=== PATIENT | female | born 1990 | race Two or more races ===

== ENCOUNTER 2017-01-02 01:52 | Emergency (ER) | payer SELFPAY ==
[~2017-01-02] VITALS: Ht 154.9 cm; Wt 81.6 kg
[~2017-01-02 01:52] MED LIST: IBUPROFEN600 MG ORAL; UNKNOWN ANTIBIOTIC
[2017-01-02] MEDS ORDERED: NKM (01:59)
[2017-01-02 02:05] VITALS: BP 113/80
[2017-01-02] MEDS ORDERED: PREDNISONE20 MG ORAL (02:18)
[2017-01-02] MEDS ORDERED: BENADRYL25 MG ORAL (02:18)
--- NOTE | 2017-01-02 02:19 | Emergency Room Report ---
History of Present Illness General Chief Complaint: Allergic Reaction Source: Patient Present Illness HPI Is a 26-year-old female with no symptom past medical history she present with allergic reaction. She ate pineapple around 10 PM. She woke up around 1:30 2: 00 with itchiness and rash. No tongue edema. No short of breath and wheezing. She had pineapple before but never had this reaction. No other new medication or any thing she can think of that can cause a reaction. Allergies: Coded Allergies: No Known Allergies (Unverified , 06/15/13) Patient History Past Medical History: see triage record, old chart reviewed Past Surgical History: none Pertinent Family History: none Social History: Denies: smoking Last Menstrual Period: dec Now: No Immunizations: other Reviewed Nursing Documentation: PMH: Agreed, PSxH: Agreed Nursing Documentation-PMH Past Medical History: No Stated History Review of Systems Eye: Denies: eye pain, blurred vision ENT: Denies: ear pain, nose congestion, throat swelling Respiratory: Denies: cough, shortness of breath Cardiovascular: Denies: chest pain, palpitations Gastrointestinal: Denies: abdominal pain, diarrhea, nausea, vomiting Musculoskeletal: Denies: back pain, joint pain Skin: Reports: rash Neurological: Denies: headache, numbness Endocrine: Denies: increased thirst, increased urine Hematologic/Lymphatic: Denies: easy bruising All Other Systems: negative except mentioned in HPI Physical Exam Vital Signs Date Time Temp Pulse Resp B/P (MAP) Pulse Ox O2 Delivery O2 Flow Rate FiO2 01/02/17 01:56 98.1 93 16 113/80 96 Room Air vitals normal Sp02 EP Interpretation: reviewed, normal General Appearance: well appearing, no apparent distress, alert Head: normocephalic, atraumatic Eyes: bilateral eye PERRL, bilateral eye EOMI ENT: hearing grossly normal, normal pharynx Neck: full range of motion, supple, no meningismus Respiratory: chest non-tender, lungs clear, normal breath sounds Cardiovascular #1: regular rate, rhythm, no murmur Gastrointestinal: normal bowel sounds, non tender, no mass, no organomegaly, no bruit, non-distended Musculoskeletal: back normal, gait/station normal, normal range of motion Neurologic: alert, oriented x3 Psychiatric: mood/affect normal Skin: warm/dry, rash - Urticaria and welts to her extremities and torso Medical Decision Making Diagnostic Impression: Primary Impression: Allergic reaction Qualified Codes: T78.40XA - Allergy, unspecified, initial encounter ER Course Patient with allergic reaction. No evidence of anaphylaxis. We'll discharge home Last Vital Signs Date Time Temp Pulse Resp B/P (MAP) Pulse Ox O2 Delivery O2 Flow Rate FiO2 01/02/17 01:56 98.1 93 16 113/80 96 Room Air Status: improved Disposition: HOME, SELF-CARE Condition: Stable Scripts Prednisone* (PREDNISONE*) 20 Mg Tablet 40 MG ORAL DAILY, #6 TAB Prov: TRISTON BETHEA M.D. 01/02/17 Diphenhydramine Hcl* (BENADRYL*) 25 Mg Capsule 50 MG ORAL Q6H Y for Itching, #20 CAP Prov: TRISTON BETHEA M.D. 01/02/17 Patient Instructions: Food Allergy Additional Instructions: Followup with Your Dr. in 7 days. Return if worse. Avoid pineapple. TRISTON BETHEA M.D. Jan 02, 2017 02:19
[2017-01-02 02:30] VITALS: BP 113/80
== END 2017-01-02 02:30 | disposition home or self-care (01) ==
LOC: EMR 02:30
DX: T78.40XA Allergy, unspecified, initial encounter (principal); X58.XXXA Exposure to other specified factors, initial encounter; R21 Rash and other nonspecific skin eruption; L29.9 Pruritus, unspecified
CPT/HCPCS: 99283